=== PATIENT | female | born 1980 | race Caucasian/White ===

== ENCOUNTER → 2024-02-23 06:40 | Outpatient (REF) | payer OTHER, SELFPAY | LOC: HWWDC 06:40 | PROVIDERS: ATTENDING PHYSICIAN Obstetrics & Gynecology Gynecology; FAMILY PHYSICIAN Nurse Practitioner Family | DX: Z12.31 Encounter for screening mammogram for malignant neoplasm of breast (principal) | CPT/HCPCS: 77063; 77067 ==

== ENCOUNTER → 2025-03-19 07:26 | Outpatient (REF) | payer OTHER, SELFPAY | LOC: HWWDC 07:26 | PROVIDERS: ATTENDING PHYSICIAN Obstetrics & Gynecology Gynecology; FAMILY PHYSICIAN Nurse Practitioner Family | DX: Z12.31 Encounter for screening mammogram for malignant neoplasm of breast (principal) | CPT/HCPCS: 77063; 77067 ==